=== PATIENT | female | born 1930 | race Caucasian/White ===

== ENCOUNTER 2019-03-08 14:13 | Inpatient (IN) | payer MEDICARE ==
--- NOTE | 2019-03-08 14:19 | ED ---
Neurological HPI - HPI Summary HPI Summary: Pt is an 88 y/o F presenting to the ED brought in by EMS from [facility] for neurological sx. LEVEL 5 CAVEAT: Pt is unable to provide full hx and physical upon initial interaction due to the pts current mental status. The pt arrived to [facility] at 1413, and the provider was at bedside at 1413. Per EMS, the pt was last known well at 1230 and staff subsequently noticed behavioral changes, following acute onset of sx at 1315 noticed by a PA at the nursing facility. EMS reports sx including R facial droop, R arm drop d/t weakness, and sinus bradycardia. They also note she hit her head on a blanka a couple of days ago. GINI CORNELL CALLED at 1419. She is in CT at 1420, and in X-ray as of 1429. Upon neurological exam, the pt is alert and oriented to place and self only. There is R-sided facial symmetry, pt is speaking out of L side only. Motor function in forehead is bilaterally intact, and there is flattening on the R side of the mouth upon pt smiling. Motor function to bilateral lower extremity is unable to be assessed secondary to pt's natural body contracture. On paper NIH stroke scale is 7x due to this finding. tPA ordered at 1433. - History of Current Complaint Stated Complaint: POSS STROKE PER EMS Time Seen by Provider: 03/08/19 14:13 Last Known Well Date: 03/08/19 1230, sx noticed 1315 Hx Obtained From: EMS Hx From Patient Unobtainable Due To: Altered Mental Status - code pauline Onset/Duration: Gradual Onset Onset Severity: Mild Current Severity: Moderate Character: Weak, Motor Weakness, Sensory Loss, Impaired Speech, Confusion Aggravating: Nothing Alleviating: Nothing Associated Signs and Symptoms: Positive: Confusion, Weakness, Impaired Speech TPA Considered: Yes - ordered 1433 - Allergy/Home Medications Allergies/Adverse Reactions: Allergies Allergy/AdvReac Type Severity Reaction Status Date / Time aspirin Allergy Unknown Verified 03/08/19 16:09 Reaction Details Penicillins Allergy Unknown Verified 03/08/19 16:09 Reaction Details shellfish derived Allergy Unknown Verified 03/08/19 16:09 Reaction Details Home Medications: Home Medications Acetaminophen [Acetaminophen Extra Strength] 1,000 mg PO BEDTIME PRN 03/08/19 [ History Confirmed 03/08/19] Acetaminophen [Acetaminophen Extra Strength] 1,000 mg PO Q12HR PRN 03/08/19 [ History Confirmed 03/08/19] Cholecalciferol (Vitamin D3) [Vitamin D3] 2,000 unit PO DAILY 03/08/19 [History Confirmed 03/08/19] Clopidogrel TAB* [Plavix TAB*] 75 mg PO DAILY 03/08/19 [History Confirmed ] Diclofenac 1% GEL (NF) [Voltaren 1% GEL (NF)] 2 applic TRANSDERM QID 03/08/19 [ History Confirmed 03/08/19] Gabapentin CAP(*) [Neurontin 100 mg CAP(*)] 200 mg PO BID 03/08/19 [History Confirmed 03/08/19] Hydrocortisone 1% CREAM* [Hytone Cream 1%*] 1 applic TOPICAL DAILY PRN 03/08/19 [History Confirmed 03/08/19] Magnesium Hydroxide LIQ* [Milk of Magnesia LIQ*] 30 ml PO Q6H PRN 03/08/19 [ History Confirmed 03/08/19] Melatonin (NF) 3 mg PO BEDTIME 03/08/19 [History Confirmed 03/08/19] Metoprolol Succinate XL TAB* [Toprol XL TAB*] 25 mg PO DAILY 03/08/19 [History Confirmed 03/08/19] Minerin Cream* [Eucerin Cream*] 1 applic TOPICAL BID PRN 03/08/19 [History Confirmed 03/08/19] Oral Rinse (Biotene)(NF) [Biotene Dry Mouth Oral Rinse(NF)] 30 ml PO DAILY PRN 03/08/19 [History Confirmed 03/08/19] Ranitidine TAB (NF) [Zantac TAB (NF)] 150 mg PO BEDTIME 03/08/19 [History Confirmed 03/08/19] Sertraline* [Zoloft*] 50 mg PO DAILY 03/08/19 [History Confirmed 03/08/19] guaiFENesin LIQ* [Robitussin*] 10 ml PO Q6HR PRN 03/08/19 [History Confirmed ] hydrOXYzine HCL TAB* [Atarax 25 MG TAB*] 25 mg PO DAILY 03/08/19 [History Confirmed 03/08/19] traMADol TAB* [Ultram*] 50 mg PO QAM PRN 03/08/19 [History Confirmed 03/08/19] PMH/Surg Hx/FS Hx/Imm Hx Previously Healthy: Yes Endocrine/Hematology History: Denies: Hx Diabetes, Hx Systemic Lupus Erythematosus Cardiovascular History: Reports: Other Cardiovascular Problems/Disorders - a-fib Denies: Hx Angina, Hx Congestive Heart Failure, Hx Coronary Artery Disease, Hx Hypercholesterolemia, Hx Hypertension, Hx Myocardial Infarction, Hx Pacemaker /ICD, Hx Valvular Heart Disease Respiratory History: Reports: Hx Asthma Denies: Hx Chronic Obstructive Pulmonary Disease (COPD) History: Denies: Hx Dialysis, Hx Renal Disease Musculoskeletal History: Denies: Hx Rheumatoid Arthritis Sensory History: Denies: Hx Hearing Aid Psychiatric History: Denies: Hx Panic Disorder - Cancer History Hx Chemotherapy: No - Surgical History Surgery Procedure, Year, and Place: NASAL POLYPS REMOVED - Family History Family History: LEVEL 5 CAVEAT: Pt is unable to provide full hx and physical upon initial interaction due to the pts current mental status. - Social History Alcohol Use: None Hx Substance Use: No Substance Use Type: Reports: None Hx Tobacco Use: No Smoking Status (MU): Never Smoked Tobacco Review of Systems - ROS Summary Review of Systems Summary: LEVEL 5 CAVEAT: Pt is unable to provide full hx and physical upon initial interaction due to the pts current mental status. Positive: Decreased ROM Positive: Weakness, Numbness, Slurred Speech Positive: Other - confusion All Other Systems Reviewed And Are Negative: No Physical Exam - Summary Physical Exam Summary: LEVEL 5 CAVEAT: Pt is unable to provide full hx and physical upon initial interaction due to the pts current mental status. Constitutional: Well-developed, Well-nourished, Alert. (-) Distressed Skin: Warm, Dry HENT: Normocephalic; Atraumatic Eyes: Conjunctiva normal Neck: Musculoskeletal ROM normal neck. (-) JVD, (-) Stridor, (-) Tracheal deviation Cardio: Rhythm regular, rate normal, Heart sounds normal; Intact distal pulses; The pedal pulses are 2+ and symmetric. Radial pulses are 2+ and symmetric. Pulmonary/Chest wall: Effort normal. (-) Respiratory distress, (-) Wheezes, (-) Rales Abd: Soft, (-) tenderness, (-) Distension, (-) Guarding, (-) Rebound Musculoskeletal: (-) Edema Neuro: Alert, Oriented to place and self. There is R-sided facial symmetry, pt is speaking out of L side only. Motor function in forehead is bilaterally intact , and there is flattening on the R side of the mouth upon pt smiling. Motor function to bilateral lower extremity is unable to be assessed secondary to pt' s natural body contracture. On paper NIH stroke scale is 7x due to this finding. Psych: Mood and affect Normal Triage Information Reviewed: Yes Vital Signs Reviewed: Yes Completion Of Physical Exam Limited Due To: Altered Mental Status Diagnostics - Laboratory Result Diagrams: 03/08/19 14:15 03/08/19 14:15 Lab Statement: Any lab studies that have been ordered have been reviewed, and results considered in the medical decision making process. - Radiology CXR Radiology Interpretation Completed By: Radiologist Summary of Radiographic Findings: Right basilar atelectasis with cardiomegaly. ED physician has reviewed this report. - CT Brain CT CT Interpretation Completed By: Radiologist Summary of CT Findings: NO ACUTE INTRACRANIAL PATHOLOGY. EXTENSIVE CHRONIC SMALL VESSEL ISCHEMIC CHANGE. ED physician has reviewed this report. Head CTA CT Interpretation Completed By: Radiologist Summary of CT Findings: Normal variation without significant pathologic finding. No central large vessel occlusion or hemodynamically significant stenosis evident. ED physician has reviewed this report. 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: Both Correctly Best Gaze (Only Horizontal Eye Movement): Normal Visual Field Testing: No Visual Loss Facial Paresis-Pt to Smile & Close Eyes or Grimace Symmetry: Minor Paralysis Motor Function - Right Arm: Effort Against Sutton Motor Function - Left Arm: No Drift-Holds 10 Seconds Motor Function - Right Leg: Effort Against Sutton Motor Function - Left Leg: No Drift-Holds 10 Seconds Limb Ataxia-Must be out of Proportion to Weakness Present: Absent Sensory (Use Pinprick to Test Arms/Legs/Trunk/Face): Normal Best Language (Describe Picture, Name Items): No Aphasia Dysarthria (Read Several Words): Slurs Some Words Extinction and Inattention: No Abnormality Total Score: 7 NIH Stroke Scale Comment: Motor function to bilateral lower extremity is unable to be assessed secondary to pt's natural body contracture. On paper NIH stroke scale is 7x due to this finding. Course/Dx - Course Course Of Treatment: Pt is an 88 y/o F presenting to the ED brought in by EMS from [facility] for neurological sx. LEVEL 5 CAVEAT: Pt is unable to provide full hx and physical upon initial interaction due to the pts current mental status. The pt arrived to [facility] at 1413, and the provider was at bedside at 1413. Per EMS, the pt was last known well at 1230 and staff subsequently noticed behavioral changes, following acute onset of sx at 1315 noticed by a PA at the nursing facility. EMS reports sx including R facial droop, R arm drop d/ t weakness, and sinus bradycardia. They also note she hit her head on a blanka a couple of days ago. Upon neurological exam, the pt is alert and oriented to place and self only. There is R-sided facial symmetry, pt is speaking out of L side only. Motor function in forehead is bilaterally intact, and there is flattening on the R side of the mouth upon pt smiling. Motor function to bilateral lower extremity is unable to be assessed secondary to pt's natural body contracture. On paper NIH stroke scale is 7x due to this finding. GINI CORNELL CALLED at 1419. She is in CT at 1420, and in X-ray as of 1429. tPA ordered at 1433. Pts labs show RBC of 5.45 and Hct of 47. Brain CT shows no acute intracranial pathology with noted extensive chronic small vessel ischemic change. Head CTA shows normal variation without significant pathologic finding. No central large vessel occlusion or hemodynamically significant stenosis evident. CXR shows R basilar atelectasis with cardiomegaly. An EKG at 1255 shows NSR 61bpm with Q waves in inferior and anterior leads, nonspecific T wave abnormalities, one degree AV block, no STEMI, no prior EKG for comparison. Pt is admitted to Dr. Packer with a dx of CVA. - Diagnoses Provider Diagnoses: CVA (cerebral vascular accident) During the Visit The Following Alert/Code Occurred: Gini Cornell Discharge - Sign-Out/Discharge Documenting (check all that apply): Patient Departure - Discharge Plan Condition: Fair Disposition: ADMITTED TO [facility] Referrals: Chaparrita Esparza MD [Primary Care Provider] - - Billing Disposition and Condition Condition: FAIR Disposition: Admitted to [facility] - Attestation Statements Document Initiated by Scribe: Yes Documenting Scribe: Janine Baker Provider For Whom Sue is Documenting (Include Credential): Jacob Bennett MD. Scribe Attestation: I, Janine Baker, scribed for Jacob Bennett MD. on 03/08/19 at 1655. Scribe Documentation Reviewed: Yes Provider Attestation: The documentation as recorded by the scribe, Janine Baker accurately reflects the service I personally performed and the decisions made by me, Jacob Bennett MD. Status of Scribe Document: Viewed
[2019-03-08] MEDS ORDERED: Alteplase* 100 MG VIAL ONE (14:33)
[2019-03-08 14:36] LABS: ABS Basophils 0 10^3/ul (0-0.2); ABS Eosinophils 0.2 10^3/ul (0-0.6); ABS Lymphocytes 1.6 10^3/ul (1.0-4.8); ABS Monocytes 0.8 10^3/ul (0-0.8); ABS Neutrophils 6.4 10^3/ul (1.5-7.7); ABS Nucleated RBC 0 10^3/ul; Eosinophil % 2.7 %; Hematocrit 47 % (33-41); Hemoglobin 15.7 g/dL (12.0-16.0); Lymphocyte % 17.2 %; Mean Corpuscular HGB Conc 33 g/dL (31-36); Mean Corpuscular Hemoglobin 29 pg (27-31); Mean Corpuscular Volume 87 fL (80-97); Mean Platelet Volume 8.2 fL (7.4-10.4); Nucleated Red Blood Cells % 0.1; Platelet Count 297 10^3/uL (150-450); Red Blood Count 5.45 10^6 /uL (3.70-4.87); Red Cell Distribution Width 15 % (10.5-15)
[2019-03-08 14:44] LABS: INR 1.02 (0.82-1.09)
[2019-03-08 14:50] LABS: Troponin I 0.01 ng/mL (<0.04)
[2019-03-08] MEDS ORDERED: Alteplase* 100 MG VIAL IV ONE ×2 (14:57)
[2019-03-08 15:01] LABS: Albumin 3.9 g/dL (3.2-5.2); Albumin/Globulin Ratio 1.4 (1-3); BUN/Creatinine Ratio 16.8 (8-20); Calcium 9.1 mg/dL (8.6-10.3); EGFR African American 67.5 (>60); EGFR Non-African American 55.8 (>60); Globulin 2.7 g/dL (2-4); HDL Cholesterol 64.5 mg/dL; Potassium 4.7 mmol/L (3.5-5.0); Total Bilirubin 0.4 mg/dL (0.2-1.0); Total Protein 6.6 g/dL (6.4-8.9)
[2019-03-08 19:52] LABS: Urine Appearance Clear; Urine Bacteria 1+ (Absent); Urine Bilirubin Negative (Negative); Urine Blood 1+ (Negative); Urine Color Yellow; Urine Glucose Negative (Negative); Urine Ketones Negative (Negative); Urine Nitrite Positive (Negative); Urine Protein Negative (Negative); Urine Red Blood Cell 3+(>10/hpf) (Absent); Urine Specific Gravity > 1.060 (1.010-1.030); Urine Urobilinogen Negative (Negative); Urine White Blood Cell Absent (Absent)
--- NOTE | 2019-03-08 20:42 | HP ---
CC: Dr. Chaparrita Esparza; Dr. Amando Packer* HISTORY AND PHYSICAL: DATE OF ADMISSION: 03/08/19 PROVIDER: Kennedi Garner NP PRIMARY CARE PROVIDER: Dr. Chaparrita Esparza/[facility]. ATTENDING PHYSICIAN WHILE IN THE HOSPITAL: Dr. Walt Rinaldi* (dictated by Kennedi Garner NP). NEUROLOGIST: Dr. Amando Packer. CHIEF COMPLAINT: Right-sided weakness, right facial droop, aphasia. HISTORY OF PRESENT ILLNESS: Ms. Tinoco is an 88-year-old female with a history of CVA in 2010, history of depression, history of heart failure with reduced ejection fraction, who is a current resident at [facility]. The patient was brought to [facility] by EMS after she was found to have neurological symptoms at [facility] today. The patient arrived here at approximately 1413. It was reported from [facility] that the patient's last known well time was 1 o'clock. Subsequently, the staff noticed behavior changes following an acute onset of symptoms at 1315 was noticed by the PA at [facility]. The patient had acute onset of aphasia, which is new for the patient. Prior to this event, the patient was able to carry on a conversation without difficulty. Upon arrival to the emergency room, theodore diann was called at 1419. The patient had a CT of the head and then subsequently received tPA in the emergency room as the patient did have right-sided facial asymmetry, unequal smile, right-sided weakness that was worse. The patient was seen and evaluated at the bedside by Neurology, Dr. Amando Packer, who had recommended tPA and the patient will be admitted to the hospital as an inpatient. Upon my evaluation, the patient has no complaints. She is able to speak in one word sentences. She is able to answer questions appropriately. Speech continues to be slightly slurred and occasionally is able to produce 2 to 3 word sentences. The patient does have some minimal movement to the right arm. Does continue to have right facial droop with unequal smile and tongue that deviates to the right. Given the patient's presentation of stroke and receiving tPA, we will admit her inpatient in the ICU. PAST MEDICAL HISTORY: Significant for CVA in 2010, history of a non-STEMI, history of pulmonary hypertension, history of depression, diastolic heart dysfunction. PAST SURGICAL HISTORY: Tonsillectomy. HOME MEDICATIONS: 1. Hydrocortisone cream topically p.r.n. 2. Eucerin cream topically p.r.n. 3. Milk of magnesia 30 mL q.6 hours as needed for constipation. 4. Guaifenesin 10 mL p.o. q.6 hours p.r.n. 5. Biotin 30 mL p.o. daily p.r.n. 6. Voltaren gel 2 applications transdermally 4 times daily. 7. Extra Strength Tylenol 1000 mg q.12 hours as needed. 8. Gabapentin 200 mg p.o. b.i.d. 9. Sertraline 50 mg p.o. daily. 10. Vitamin D3 2000 units p.o. daily. 11. Tramadol 50 mg p.o. q.a.m. p.r.n. 12. Metoprolol 25 mg p.o. daily. 13. Zantac 150 mg p.o. at bedtime. 14. Melatonin 3 mg p.o. at bedtime. 15. Hydroxyzine 25 mg p.o. daily. 16. Clopidogrel 75 mg p.o. daily. ALLERGIES: 1. PENICILLIN. 2. ASPIRIN. 3. SHELLFISH. FAMILY HISTORY: No reported history of coronary artery disease. Father with a history of colon cancer. Per the old records, mother with a history of coronary artery disease. No reported history of diabetes. SOCIAL HISTORY: The patient reports that she does not smoke, drink, or use illicit drugs. She is currently a resident at [facility]. Surrogate decision maker in the event she is unable to make her own decisions is Argelia, who is a friend. Her phone number is [phone]. REVIEW OF SYSTEMS: The patient denies any fever or unintended weight loss. Denies any chest pain or edema. No cough, hemoptysis, or shortness of breath. She denies any nausea, vomiting, diarrhea, headache, blurred vision, dizziness, lightheadedness. Denies any hematuria, dysuria. She does report weakness on the right side. She is nonambulatory and wheelchair bound chronically with contracted lower extremities. She does have some right facial droop and difficulty producing words. She denies any visual complaints, dysphagia, arthralgias, myalgias, rashes, lesions, or open sores. She denies any psychosis or anxiety. PHYSICAL EXAMINATION GENERAL: At this time, Ms. Tinoco is resting on the stretcher in the emergency room. She is alert and oriented. She does not appear to be in any acute distress. She is well developed, well nourished. VITAL SIGNS: Blood pressure 148/73, heart rate is 66, respirations are 18, O2 saturation 97%, temperature was 97.6. HEENT: Head is atraumatic, normocephalic. She does have ecchymosis noted to her left eye from she bumped it on a Darcie lift a few days ago. It is yellow in discoloration. She does have right facial drooping with unequal asymmetrical smile on the right and flattened nasal fold on the right. Mucous membranes are moist. NECK: Supple. LUNGS: Clear to auscultation bilaterally. No wheezes, rales, or rhonchi. CARDIAC: S1, S2. Regular rate and rhythm. No murmurs, rubs, or gallops. ABDOMEN: Soft and nontender. Bowel sounds are present x4. NEUROLOGIC: She is awake. She is alert and oriented x3. She is able to produce 1 to 2 word sentences. Speech remains slightly slurred and garbled. Tongue deviates to the right. She does have right facial droop. Smile is unequal with depressed on the right. She does have right arm weakness. Her lower extremities are chronically contracted. She does have push-pull strength on the left, weaker on the right in the lower extremities. Sensation is intact to both lower extremities and equal. Sensation to upper extremities is diminished on the right. She does have some movement to her right upper arm. Handgrip on the right is weaker. Left handgrip is strong. [id number] is intact on the left. She is able to raise her eyebrows equally. She is able to respond appropriately to questions, but does continue to have some aphasia and her words are garbled at times. SKIN: Intact. She does have an ecchymotic area noted to her left eyebrow. DIAGNOSTIC STUDIES/LAB DATA: WBCs are 9.0, RBCs 4.45, hemoglobin 15.7, hematocrit was 47, platelet count of 279. INR was 1.02, APTT was 33.0. Sodium 142, potassium 4.7, chloride 106, carbon dioxide was 29, anion gap of 7, BUN was 16, creatinine 0.95, glucose 131, lactic acid 1.8, calcium 9.1. Total bili 0.40, ASTs were 20, ALTs were 21, alkaline phosphatase was 70. Troponin 0.01. Albumin was 3.9. Triglycerides are 224, cholesterol 189, LDL was 80, HDL was 64.5. Urine is currently pending. She had a CT of the brain, radiologist's impression: No acute intracranial pathology, extensive chronic small-vessel ischemic changes. She had a chest x-ray, radiologist's impression: Right basilar atelectasis with cardiomegaly. She had an electrocardiogram, which showed sinus rhythm at a rate of 61. She had a CTA of the head: Normal variation without significant pathology finding. No central large-vessel occlusion or hemodynamically significant stenosis was evident. Normal configuration of the branches and vessels at the aortic arch, aortic plaquing without evidence of ostial stenosis at the aortic arch branch vessels. Approximately 70% short segment right internal carotid artery stenosis with progression when compared to 2014. Approximately 30% short segment stenosis of the left internal carotid artery without significant change. ASSESSMENT AND PLAN: Ms. Tinoco is an 88-year-old female who currently resides in [facility], who presented to the emergency room with new neurologic symptoms, aphasia that started with last known well time of 1 p.m. A code diann was called in the emergency room and the patient received tPA. She will be admitted to the hospital for cerebrovascular accident, status post tPA to ICU. 1. Cerebrovascular accident. The patient had acute neurologic changes at [facility] and was transferred here for further evaluation, found to have acute cerebrovascular accident with right-sided weakness, right facial droop, and aphasia. She was given tPA in the emergency room. We will continue with tPA protocol, vital signs, and neurological checks per the protocol. She will have a repeat CT of the brain tomorrow at 1500. She will have an MRI of the brain tomorrow at 1700. She will be placed on bleeding precautions. She will not be given Plavix or aspirin at this time as she just received tPA. She will have a transthoracic echocardiogram with bubble study. She already had a lipid profile drawn in the emergency room. She will be started on atorvastatin 40 mg p.o. daily. The patient did have a dysphagia screen and passed in the emergency room. She was seen in consultation by Neurology. Further recommendations will be based on further imaging. 2. Acid reflux. We will continue her on omeprazole p.o. daily. 3. Hypertension. She will continue on metoprolol as previously prescribed. 4. FEN: She can have a heart-healthy diet, caffeine okay. 5. Code status: She is a DNR/DNI. She does have a MOLST form that has been updated and placed on her chart. 6. DVT prophylaxis: I will hold on chemical DVT prophylaxis as it is contraindicated at this time as the patient received tPA in the emergency room. I will not place her on SCDs due to recent tPA in the emergency room. SCDs can be resumed tomorrow. TIME SPENT: Time spent on this admission was 60 minutes, greater than half that time was spent at the bedside reviewing events leading thus far to her hospitalization, performing physical exam, and reviewing my plan of care. I have discussed this with my attending, Dr. Walt Rinaldi; he is in agreement with my plan. KENNEDI GARNER, WALT [id number]/CPS #: [id number] CRISTIAN
[2019-03-08] MEDS ORDERED: Atorvastatin* 40 MG TAB PO SCH (21:00)
--- NOTE | 2019-03-08 22:58 | CONS ---
CC: [facility]* CONSULTATION REPORT: DATE OF CONSULT: 03/08/19. REQUESTING PHYSICIAN IN CONSULT: Dr. Bennett. ADMITTING SERVICE: Hospitalist Service. PRIMARY CARE PROVIDER: [facility] CHIEF COMPLAINT: Right facial droop, right arm drop, weakness, and difficulty with speech. HISTORY OF PRESENT ILLNESS: Ms. Tinoco is an 88-year-old female patient who resides at [facility]. She carries a history of syncope, CVA with residual right- sided weakness, [id number]-[id number] pulmonary hypertension, and history of diastolic dysfunction. She is coming into our ER today because it was noted by nursing staff and physician's medical services assistant over at [facility] that at around 12: 30, there was some behavioral changes noted. At 1:15, it was noted by the physician's medical services assistant at nursing facility that the patient had had a right facial droop, acute onset of these symptoms and worsening right arm weakness. At that point, EMS was summoned and the patient was brought to the hospital for a concern for CVA. The patient was noted a few days ago to have struck her head. She presented to the emergency room department. Radha tidwell was called when she hit the ER. NIH stroke scale was a 7. There are unable to preform motor right and left leg assessment due to history of contractures. The patient really is unable to give history. The surrogate is there today and does state that the patient has a previous history of stroke and right-sided weakness. She does state that today by the time of patient's surrogate got to the hospital, she did note that the patient had worsening right-sided weakness, also right-sided facial droop and difficulty with speech. She was taken emergently from EMS to the CT scan and no bleed was noted. Surrogate decision maker was present at the bedside to corroborate history and tell us that again worsening right-sided weakness is noted particularly in the right arm. In addition to that there was right-sided facial drooping and her speech appeared to be different. At that point, the risk-benefit, discussion was given with patient and the surrogate. She met criteria for TPA infusion and TPA was given. PAST MEDICAL HISTORY: Again, it is significant for: 1. 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 2. Syncope. 3. Oggp-jn-utmdpphz pulmonary hypertension. 4. Diastolic heart dysfunction. 5. Depression. 6. Anxiety. 7. Neuropathy. 8. Hypertension. 9. GERD. 10. Carotid artery disease. PAST SURGICAL HISTORY: There has been no recent surgeries reported by the surrogate decision maker. HOME MEDICATIONS: Include: 1. Hydrocortisone cream 1 application topically daily as needed. 2. Eucerin 1 application topically b.i.d. as needed. 3. Milk of mag 30 cc p.o. daily as needed. 4. Robitussin 10 cc p.o. every 6 hours as needed. 5. Biotin 30 cc p.o. daily as needed. 6. Diclofenac 2 applications transdermally 4 times a day. 7. Tylenol 1000 mg p.o. every 12 hours as needed. 8. Gabapentin 200 mg p.o. b.i.d. 9. Zoloft 50 mg daily. 10. Vitamin D 2000 units p.o. daily. 11. Tramadol 50 mg p.o. q.a.m. as needed. 12. Metoprolol-XL 25 mg daily. 13. Zantac 150 mg p.o. daily. 14. Melatonin 3 mg p.o. at bedtime. 15. Atarax 25 mg daily. 16. Plavix 75 mg daily. 17. Tylenol 1000 mg at bedtime as needed. ALLERGIES TO MEDICATIONS: Include ASPIRIN, PENICILLIN. FAMILY HISTORY: Mother had CAD. Father had colon cancer. SOCIAL HISTORY: There was no reports of alcohol use. She resides [facility]. No reports of smoking. Surrogate decision maker is her friend, Rosa Tinoco. REVIEW OF SYSTEMS: There has been no reports of change of medications. No double vision. No ear discharge. There is no rhinorrhea. No sore throat. No thyroid enlargement. She denied any chest pain or shortness of breath. No abdominal pain. Review of 14 systems completed, all others negative. PHYSICAL EXAM: Vital signs: Blood pressure 137/68, pulse is 63, respiration 16 , O2 sat 97%, temperature 97.6. General: At this time, Ms. Tinoco is an 88- year-old female patient. She is sitting in the ED stretcher. She does not appeared to be in acute distress. HEENT: Head: Atraumatic. Eyes: Sclerae anicteric, not pale. Neck: Supple. Throat: Oral mucosa appears to be moist. No oropharyngeal erythema. Heart: Sounds S1, S2. Regular rate and rhythm. No murmurs, rubs, gallops. Lungs: Clear to auscultation bilaterally. No wheezes, rales, or rhonchi. Abdomen: Soft, flat, nontender. Bowel sounds are present. Extremities: Lower extremities noted to be contracted. Pulses were 2 + throughout. She had some trace edema bilaterally. The upper extremity on the right side, she again was noted to be flaccid. She was able to resist against gravity only. At that point, she had 5/5 strength in left upper extremity at the biceps and at the shoulder. Neurologically, she is awake. She is alert. She knew that it was almost March. She did know her age. She received appointment NIH stroke scale for getting the month wrong. She was following commands. She had no gaze preference noted. There was no visual field deficits noted. She did have a partial facial palsy 2+. She had no drift in the left arm. She had some effort against gravity on the right arm. Again, lower extremities were difficult to test because she does not walk generally. She again is contracted. At this point, she had no limb ataxia. She had gross sensation to light touch bilaterally. She had ngqj-pr-izhamdjo aphasia noted and fnmh-ro-zbtwbfgp dysarthria as well. She had no neglect. Deep tendon reflexes were trace throughout and were symmetric. Rapid alternating movements were intact. She could not do this with the right hand, but she can do it on the left hand touching her index and thumb rapidly. Gait was not tested at this point. Romberg not tested. Cranial Nerves: Her EOMs were intact. Her pupils were equal and reactive bilaterally. Again, her tongue was midline. She did have a right- sided facial droop noted. Visual dhillon intact at this point grossly. She was able to shrug her shoulders, she had difficulty with this on the right shoulder. Skin: She did have some ecchymosis above the left church. DIAGNOSTIC STUDIES/LAB DATA: Laboratory data today reveals a WBC of 9.0, RBC of 5.45, hemoglobin of 15.7, hematocrit of 47, platelet count of 297. Her INR was 1.02, PTT of 33. Her sodium was 142, potassium 4.7, chloride 106, bicarb 29 , BUN was 16, creatinine of 0.95, glucose was 131. Lactic 1.8. Calcium 9.1. Total bili 0.4, AST 20, ALT 21, alk phos 70. Troponin 0.01. Albumin was 3.9. Her LDL was 80. Imaging: I did review the imaging personally and with Dr. Packer. I did not appreciate any acute hemorrhage. In addition to this, it did appear to have chronic small vessel ischemic changes, which is extensive. The impression from Dr. Mancilla, no acute intracranial pathology, extensive chronic small vessel ischemic change. She had a head CTA obtained today as well, which revealed normal variation without significant pathologic findings. No central large vessel occlusion or hemodynamically significant stenosis evident. Neck angiogram showed approximate 70% short segment right internal carotid artery stenosis with progression compared with 2014 ultrasound exam. Approximate 30% short segment stenosis at the left internal carotid artery without significant change. She had chest x-ray obtained today, right basilar atelectasis and cardiomegaly. She did have an EKG obtained today, which showed a normal sinus rhythm, rate of 61. No ST-elevation or T-wave inversions are noted. Old medical records were reviewed. ASSESSMENT AND PLAN: Ms. Tinoco is an 88-year-old female with patient coming into the ED today with acute onset of stroke-like symptoms. The patient was noted to have worsening right-sided facial droop, worsening right upper extremity weakness and difficulty with speech. She was transferred to the hospital from [facility] via EMS. She was last known normal at 1230. The symptoms were noted at 1315. The patient came into the ER, code tidwell was activated. She was sent to CT scanning. It was noted on CT that again no bleeding was noted. CTA did not show large vessel occlusion. She had no contraindication for tPA at this point and it was decided given the NIH stroke scale scores that TPA would be given. Her healthcare proxy was there and agreed. We did explain to her that there is about a 1 in 20 chance of bleeding , however, patients who do bleed after given tPA intracranially, do have better outcomes overall versus patients who are not given tPA. So at that point, the patient and healthcare proxy both were in agreement and tPA was given. I would recommended going forward, my suspicion that she had another cerebrovascular accident, the plan would be to get an MRI. We will place her on telemetry to monitor for atrial fibrillation. In addition to this, we will check an echo with bubble study. She already had a CTA, which did not show large vessel occlusion. She does have carotid artery disease. Going forward, we will need to clarify her aspirin allergy because dual antiplatelet therapy is recommended for at least 30 days, however, we will need to clarify the aspirin allergy. I would recommend continuing her Plavix, however, this will need to be continued after 24 hours after tPA had been given. She will need to have a repeat CT of the brain in 24 hours to establish no bleed. MRI can be done tomorrow as well. She will need frequent neurological checks in our ICU. Bleeding precautions will need to be instituted. I would recommend placing her on bedrest. I would recommend getting a swallow evaluation and PT and OT evaluations in 24 hours. Again, monitor for any atrial fibrillation and I would hold obviously any blood thinners for at least first 24 hours such as subcu heparin, subcu Lovenox. DVT prophylaxis, I would recommend SCDs. Code status, she is a DNR. We would need to again clarify with her healthcare agent. TIME SPENT: Time spent on the admission which was critical care time was 70 minutes, greater than half of the time was spent [id number] with the patient obtaining the history and physical, the other half of the time spent implementing the plan of care. I did discuss the plan of care with my Dr. Packer, he was in agreement, he was present for the administration of tPA and decision to give tPA. MARIMAR SY NP [id number]/[facility] #: [id number] CRISTIAN
--- NOTE | 2019-03-08 23:46 | PN ---
Progress Note - Progress Note Date of Service: 03/08/19 Note: Paged - Patient became acutely unresponsive. BP's were within parameters. Prior to this - patient was moving ext and alert, following commands and verbal. Had weakness in RUE. 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 On exam: pupils are equal and reactive, upgoing babinski's, unresponsive to voice or tactile stimuli. Not moving any extremeities. HCP contacted and updated. Confirmed DNR/DNI status. HCP asked if I would contact Daughter in [place] at [phone] and discussed poor prognosis and that patient will not survive and may within the next 24 hours. Daughter attempting to come here. Spoke with Dr. Packer - BP control with IVFs, prognosis is poor.
[2019-03-09] MEDS ORDERED: Norepinephrine 16MCG/ML IVPRE* 4,000 MCG/250 ML BAG IV ONE (00:02)
[2019-03-09] MEDS ORDERED: NS 0.9% 1000 ML** 1,000 ML IV SCH (00:15)
[2019-03-09] MEDS ORDERED: Morphine INJ* 2 MG/ML 1 ML SYRINGE (TWO MG - NEW SYRINGE VERSION) IV PRN (01:30)
[2019-03-09] MEDS ORDERED: hydrALAZINE IV* 20 MG/ML VIAL ONE (01:34)
[2019-03-09] MEDS ORDERED: hydrALAZINE IV* 20 MG/ML VIAL IV SLOW PU ONE (01:34)
[2019-03-09] MEDS ORDERED: NitroPRUSSide* 50 MG in D5W 250 ML BAG* 248 ML IVPB SCH ×2 (02:00→18:00)
[2019-03-09] MEDS ORDERED: Morphine 4 MG/ML VIAL (1 ml) 4 MG/ML VIAL ONE (02:02)
[2019-03-09] MEDS: Morphine 4 MG/ML VIAL (1 ml) 4 MG/ML VIAL IV PRN ×2 (02:11→20:59)
--- NOTE | 2019-03-09 08:07 | PN ---
Subjective Date of Service: 03/09/19 Length of Stay: 1 Days Review of Systems: The patient received tPA yesterday and was improving. When I last saw her yesterday, she had more functioning of her left arm, was more alert and her speech was less dysarthric. I was contact by Dr. Garcia last night after the patient became unresponsive and began to decompensate. 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 Her healthcare proxy was contacted by Dr. Garcia. The patient was bedbound at [facility], needing a Darcie lift and we very clear to the health care proxy that she did not want any heroic measures. She is DNR/DNI. Overnight the patient's blood pressure spiked to [address] Garcia contacted me, and I recommended BP control to keep SBP < 140, nitroprusside was started. The patient's breathing has become more agonal overnight, she desats into the 80s immediately. Objective Active Medications: Atorvastatin Calcium (Lipitor*) 40 mg PO 2100 [facility] Last Admin: 03/08/19 20:22 Dose: Not Given Hydroxyzine HCl (Atarax Tab*) 25 mg PO DAILY [facility] Sodium Nitroprusside 50 mg/ (Dextrose) 250 mls @ 5.85 mls/hr IVPB Q42H [facility] Last Admin: 03/09/19 02:07 Dose: 5.9 mls/hr Metoprolol Succinate (Toprol Xl Tab*) 25 mg PO DAILY [facility] Morphine Sulfate (Morphine 4 Mg/Ml Vial (1 Ml)) 2 mg IV Q2H PRN PRN Reason: PAIN Last Admin: 03/09/19 02:11 Dose: 2 mg Sertraline HCl (Zoloft*) 50 mg PO DAILY [facility] Vital Signs 03/08/19 03/08/19 03/08/19 14:22 14:43 14:58 Temperature 97.6 F Pulse Rate 63 60 Respiratory 16 13 Rate Blood Pressure 137/68 (mmHg) O2 Sat by Pulse 95 97 96 Oximetry 03/08/19 03/08/19 03/08/19 14:59 15:00 15:01 Temperature Pulse Rate 63 61 Respiratory 13 15 16 Rate Blood Pressure 146/76 (mmHg) O2 Sat by Pulse 94 96 Oximetry 03/08/19 03/08/19 03/08/19 15:09 15:24 15:39 Temperature Pulse Rate 62 Respiratory 15 15 20 Rate Blood Pressure 153/69 143/73 145/73 (mmHg) O2 Sat by Pulse 95 Oximetry 03/08/19 03/08/19 03/08/19 15:54 16:00 16:09 Temperature Pulse Rate Respiratory 14 18 19 Rate Blood Pressure 149/78 130/91 (mmHg) O2 Sat by Pulse Oximetry 03/08/19 03/08/19 03/08/19 16:24 16:39 16:54 Temperature Pulse Rate 66 66 67 Respiratory 17 18 17 Rate Blood Pressure 151/88 154/83 148/73 (mmHg) O2 Sat by Pulse 95 97 97 Oximetry 03/08/19 03/08/19 03/08/19 17:00 17:09 17:48 Temperature Pulse Rate 65 66 Respiratory 18 13 17 Rate Blood Pressure 146/83 147/75 (mmHg) O2 Sat by Pulse 97 95 Oximetry 03/08/19 03/08/19 03/08/19 18:00 18:18 18:48 Temperature Pulse Rate Respiratory 14 16 18 Rate Blood Pressure 138/85 143/70 (mmHg) O2 Sat by Pulse Oximetry 03/08/19 03/08/19 03/08/19 19:01 19:18 19:28 Temperature Pulse Rate 64 Respiratory 18 22 16 Rate Blood Pressure 129/62 151/71 (mmHg) O2 Sat by Pulse 95 Oximetry 03/08/19 03/08/19 03/08/19 19:30 19:33 19:45 Temperature 98.3 F 98.3 F Pulse Rate 62 64 63 Respiratory 15 16 18 Rate Blood Pressure 143/66 151/71 158/68 (mmHg) O2 Sat by Pulse 95 95 96 Oximetry 03/08/19 03/08/19 03/08/19 20:00 20:01 20:03 Temperature 98.3 F Pulse Rate 68 68 Respiratory 20 20 Rate Blood Pressure 146/62 (mmHg) O2 Sat by Pulse 97 97 Oximetry 03/08/19 03/08/19 03/08/19 20:15 20:30 20:33 Temperature 98.3 F Pulse Rate 63 71 Respiratory 22 20 Rate Blood Pressure 138/96 162/82 (mmHg) O2 Sat by Pulse 96 95 Oximetry 03/08/19 03/08/19 03/08/19 20:45 21:00 21:03 Temperature 98.3 F Pulse Rate 62 69 Respiratory 16 11 Rate Blood Pressure 126/98 144/71 (mmHg) O2 Sat by Pulse 97 97 Oximetry 03/08/19 03/08/19 03/08/19 21:15 21:30 21:33 Temperature 98.3 F Pulse Rate 70 71 Respiratory 17 20 Rate Blood Pressure 147/74 135/81 (mmHg) O2 Sat by Pulse 99 95 Oximetry 03/08/19 03/08/19 03/08/19 22:00 23:00 23:28 Temperature Pulse Rate 71 70 57 Respiratory 14 15 17 Rate Blood Pressure 133/75 164/92 122/66 (mmHg) O2 Sat by Pulse 94 94 94 Oximetry 03/08/19 03/08/19 03/08/19 23:33 23:40 23:45 Temperature 98.7 F Pulse Rate 58 58 Respiratory 16 16 Rate Blood Pressure 132/68 (mmHg) O2 Sat by Pulse 94 94 Oximetry 03/09/19 03/09/19 03/09/19 00:00 00:15 00:30 Temperature 97.5 F Pulse Rate 60 59 58 Respiratory 9 17 21 Rate Blood Pressure 119/64 112/65 122/61 (mmHg) O2 Sat by Pulse 97 94 98 Oximetry 03/09/19 03/09/19 03/09/19 00:33 00:45 01:00 Temperature 98.6 F Pulse Rate 61 60 Respiratory 12 13 Rate Blood Pressure 136/73 149/71 (mmHg) O2 Sat by Pulse 98 98 Oximetry 03/09/19 03/09/19 03/09/19 01:03 01:31 01:32 Temperature 98.5 F Pulse Rate 67 73 Respiratory 14 14 Rate Blood Pressure 237/98 232/103 (mmHg) O2 Sat by Pulse 96 97 Oximetry 03/09/19 03/09/19 03/09/19 01:33 01:37 01:45 Temperature 98.7 F Pulse Rate 66 55 Respiratory 17 18 Rate Blood Pressure 225/84 177/89 (mmHg) O2 Sat by Pulse 96 96 Oximetry 03/09/19 03/09/19 03/09/19 02:00 02:01 02:11 Temperature Pulse Rate 54 Respiratory 21 21 13 Rate Blood Pressure 207/90 (mmHg) O2 Sat by Pulse 69 Oximetry 03/09/19 03/09/19 03/09/19 02:25 02:30 02:45 Temperature Pulse Rate 73 72 51 Respiratory 16 12 23 Rate Blood Pressure 125/57 123/54 143/63 (mmHg) O2 Sat by Pulse 97 97 77 Oximetry 03/09/19 03/09/19 03/09/19 03:00 03:01 03:15 Temperature Pulse Rate 75 70 74 Respiratory 22 14 17 Rate Blood Pressure 137/58 138/65 (mmHg) O2 Sat by Pulse 97 97 97 Oximetry 03/09/19 03/09/19 03/09/19 03:30 03:44 03:45 Temperature 97.5 F Pulse Rate 83 87 Respiratory 21 15 Rate Blood Pressure 135/55 151/62 (mmHg) O2 Sat by Pulse 97 97 Oximetry 03/09/19 03/09/19 03/09/19 04:00 04:01 04:15 Temperature Pulse Rate 81 68 83 Respiratory 21 21 18 Rate Blood Pressure 135/62 169/71 (mmHg) O2 Sat by Pulse 97 97 97 Oximetry 03/09/19 03/09/19 03/09/19 04:30 04:31 04:45 Temperature Pulse Rate 82 95 71 Respiratory 7 14 8 Rate Blood Pressure 144/57 132/62 156/66 (mmHg) O2 Sat by Pulse 97 97 95 Oximetry 03/09/19 03/09/19 03/09/19 04:50 04:52 05:00 Temperature Pulse Rate 88 59 53 Respiratory 10 16 23 Rate Blood Pressure 161/68 143/50 143/60 (mmHg) O2 Sat by Pulse 92 91 86 Oximetry 03/09/19 03/09/19 03/09/19 05:15 05:30 05:45 Temperature Pulse Rate 83 81 77 Respiratory 16 17 16 Rate Blood Pressure 134/52 140/55 137/55 (mmHg) O2 Sat by Pulse 88 90 92 Oximetry 03/09/19 03/09/19 06:00 07:39 Temperature 99.9 F Pulse Rate 78 Respiratory 22 Rate Blood Pressure 140/57 (mmHg) O2 Sat by Pulse 93 Oximetry Intake and Output Last 24 Hours 03/07/19 03/08/19 03/09/19 03/10/19 06:59 06:59 06:59 06:59 Intake Total 48 Output Total 305 Balance -257 Weight 146 lb 13.246 oz Intake: Medicated IV 48 Nitroprusside 48 Output: [place] 305 Oxygen Devices in Use Now: OxyMask Neurology Exam: General: The patient is lying in bed, with NRB in place, obtunded, unrepsonsive to loud noise and pain. Breathing is slow and at times agonal. CTAB, RRR, no m/g/r. Skin is warm and dry. Doll's eye negative, corneal absent, no reponse to painful stim in all four extremities or with sternal rub. DTRs down throughout , Pupils are 1mm, sluggish. Babinski is equivocal. No posturing evident. She does have contractures the LEs. Result Diagrams: 03/08/19 14:15 03/08/19 14:15 Microbiology and Other Data: Microbiology 03/08/19 16:15 Nasal Screen MRSA (PCR) - Final Nasal Mrsa Not Detected Assessment/Plan 88 y/o with acute onset right HP, history of prior stroke with residual weakness on the right side but her right sided weakness was dramatically worse with worsened dysarthria. NIH was initially 7 but could not score LEs due to contractures. She was deemed a good tPA candidate and was given. Overnight, she developed a large pontine bleed with severe decline in status. Prognosis is extremely poor with a devastating pontine stroke. She is DNR/DNI. Healthcare proxy confirmed that she did not want heroic measures DNR/DNI. While more aggressive intervention was considered, the evidence for cyroprecipitate, FPP is poor and given the location and size of her bleed as well as her poor premorbid funtioning, any outcome would likely be very poor with a severe disability and poor prognosis. The patient is being kept comfortable. Maintaining SBP < 140, O2 supplementation. The daughter was contacted last night and is on her way from [place]. I have tried to contact her again this am at [phone]. I will continue to reach to her today.
[2019-03-09] MEDS ORDERED: hydrOXYzine HCL TAB* 25 MG PO SCH (09:00)
[2019-03-09] MEDS ORDERED: Metoprolol Succinate XL TAB* 25 MG PO SCH (09:00)
[2019-03-09] MEDS ORDERED: Sertraline* 50 MG TAB PO SCH (09:00)
[2019-03-09] MEDS ORDERED: Atropine 1% (ORAL/SL)* 15 ML BTL SL PRN (18:06)
--- NOTE | 2019-03-09 18:16 | PN ---
Subjective Date of Service: 03/09/19 Interval History: Unresponsive Unable to make needs known Objective Active Medications: Atropine Sulfate (Atropine 1% (Oral/Sl)*) 2 drop SL Q2H PRN PRN Reason: DISCOMFORT Morphine Sulfate (Morphine 4 Mg/Ml Vial (1 Ml)) 2 mg IV Q2H PRN PRN Reason: PAIN Last Admin: 03/09/19 02:11 Dose: 2 mg Vital Signs - 8 hr 03/09/19 03/09/19 03/09/19 10:15 10:30 10:45 Temperature Pulse Rate 66 57 62 Respiratory 21 16 24 Rate Blood Pressure 117/50 119/52 113/51 (mmHg) O2 Sat by Pulse 90 92 93 Oximetry 03/09/19 03/09/19 03/09/19 11:00 11:01 11:15 Temperature Pulse Rate 67 63 58 Respiratory 15 21 21 Rate Blood Pressure 115/55 102/49 (mmHg) O2 Sat by Pulse 92 91 90 Oximetry 03/09/19 03/09/19 03/09/19 11:30 11:45 12:00 Temperature 97.1 F Pulse Rate 58 57 62 Respiratory 14 18 18 Rate Blood Pressure 108/52 94/46 89/48 (mmHg) O2 Sat by Pulse 92 91 89 Oximetry 03/09/19 03/09/19 03/09/19 12:01 12:15 12:30 Temperature Pulse Rate 59 61 58 Respiratory 16 13 18 Rate Blood Pressure 116/50 112/50 (mmHg) O2 Sat by Pulse 92 96 95 Oximetry 03/09/19 03/09/19 03/09/19 12:45 13:00 13:15 Temperature Pulse Rate 59 54 55 Respiratory 17 17 18 Rate Blood Pressure 103/46 98/48 94/47 (mmHg) O2 Sat by Pulse 95 95 93 Oximetry 03/09/19 03/09/19 03/09/19 13:30 13:45 14:00 Temperature Pulse Rate 57 56 52 Respiratory 23 13 13 Rate Blood Pressure 100/50 101/47 106/49 (mmHg) O2 Sat by Pulse 93 94 94 Oximetry 03/09/19 03/09/19 03/09/19 14:15 14:30 14:45 Temperature Pulse Rate 56 54 57 Respiratory 17 10 18 Rate Blood Pressure 99/47 105/50 102/48 (mmHg) O2 Sat by Pulse 93 94 94 Oximetry 04/03/09/19 03/09/19 15:00 15:15 15:30 Temperature Pulse Rate 59 55 58 Respiratory 14 15 13 Rate Blood Pressure 106/50 105/46 91/46 (mmHg) O2 Sat by Pulse 96 94 94 Oximetry 03/09/19 03/09/19 15:45 16:00 Temperature 97.1 F Pulse Rate 55 61 Respiratory 10 16 Rate Blood Pressure 103/49 107/51 (mmHg) O2 Sat by Pulse 95 95 Oximetry Oxygen Devices in Use Now: OxyMask Appearance: sitting up, unresponsive Eyes: No Scleral Icterus Ears/Nose/Mouth/Throat: NL Teeth, Lips, Gums Neck: NL Appearance and Movements; NL JVP Respiratory: Symmetrical Chest Expansion and Respiratory Effort Cardiovascular: RRR Neurological: - - AOx0 Result Diagrams: 03/08/19 14:15 03/08/19 14:15 Microbiology and Other Data: Microbiology 03/08/19 16:15 Nasal Screen MRSA (PCR) - Final Nasal Mrsa Not Detected Assess/Plan/Problems-Billing 88 y/o pw acute CVA s/p tpa complicated by large pontine hemorrhage - Patient Problems (1) Pontine hemorrhage Comment: prognosis poor with expected in hours to days No longer needing medications to maintain BP <140 [place] (2) DNR (do not resuscitate)
[2019-03-10] MEDS: Morphine 4 MG/ML VIAL (1 ml) 4 MG/ML VIAL IV PRN (00:06)
[2019-03-10 00:17] VITALS: BP 73/39
--- NOTE | 2019-03-10 00:29 | PN ---
Progress Note - Progress Note Date of Service: 03/10/19 Note: I was notified by nursing that the patient at 1217 on 03/10/19. Unfortunately the patient's daughter did not make it to the hospital prior to her . Chela for hemorrhagic transformation of an ischemic CVA following tPA administration. I attempted to contact the patient's daughter but have been unsuccessful so far.
--- NOTE | 2019-03-10 10:56 | DS ---
DISCHARGE SUMMARY: DATE OF ADMISSION: 03/08/19 DATE OF DISCHARGEE: 03/10/19 PRIMARY CARE PROVIDER: Bety Fox DO at [facility]. HOSPITAL COURSE: Ms. Tinoco is an 88-year-old female who had been in her usual state of health until approximately 1 p.m. on 03/08/19 when she was noted to have significant right-sided hemiparesis. The patient was sent to the emergency room and was determined to be having an acute stroke. She was seen by Dr. Packer, who recommended tPA. The patient received and initially had improvement in her symptoms, however, at approximately 2340 on 03/08/19, the patient had sudden worsening of her neurologic status. She also developed marked hypertension. Her mental status change was that she became acutely unresponsive. Repeat CT at that time showed an acute pontine hemorrhage. The patient had very specific guidelines to follow on her MOLST form. Ultimately, no aggressive measures were taken. At 12:17 a.m. on 03/10/19, the patient . Unfortunately, the patient's daughter was travelling from [place] and missed her mom passing away. The patient's daughter ultimately showed up and I spoke to her. TIME OF : 12:17 a.m. on 03/10/19. CAUSE OF : Hemorrhagic transformation of an ischemic CVA. [id number]/[facility] #: [id number] MTDD
== END 2019-03-10 00:15 | disposition expired | DRG 61 ==
LOC: ED 14:13 → ICU 17:29
PROVIDERS: ADMIT Internal Medicine; ATTEND Internal Medicine
DX: I63.9 Cerebral infarction, unspecified (principal); I61.3 Nontraumatic intracerebral hemorrhage in brain stem; G81.91 Hemiplegia, unspecified affecting right dominant side; I50.22 Chronic systolic (congestive) heart failure; J98.11 Atelectasis; R00.1 Bradycardia, unspecified; R47.01 Aphasia; I48.91 Unspecified atrial fibrillation; J45.909 Unspecified asthma, uncomplicated; R29.707 NIHSS score 7; R29.810 Facial weakness; F32.9 Major depressive disorder, single episode, unspecified; I27.20 Pulmonary hypertension, unspecified; K21.9 Gastro-esophageal reflux disease without esophagitis; Z66 Do not resuscitate; I11.0 Hypertensive heart disease with heart failure; F41.9 Anxiety disorder, unspecified; G62.9 Polyneuropathy, unspecified; I65.21 Occlusion and stenosis of right carotid artery; T45.615A Adverse effect of thrombolytic drugs, initial encounter; Y92.239 Unspecified place in hospital as the place of occurrence of the external cause; R47.1 Dysarthria and anarthria; Z88.0 Allergy status to penicillin; Z88.8 Allergy status to other drugs, medicaments and biological substances; Z91.018 Allergy to other foods; Z86.73 Personal history of transient ischemic attack (TIA), and cerebral infarction without residual deficits; I25.2 Old myocardial infarction; Z82.49 Family history of ischemic heart disease and other diseases of the circulatory system; Z80.0 Family history of malignant neoplasm of digestive organs
CPT/HCPCS: 36415; 70450; 70496; 70498; 71045; 80053; 80061; 81003; 81015; 83605; 84484; 85025; 85610; 85730; 86850; 86900; 86901; 87086; 87641; 93005; 99285; A9270-GY; J0360; J2270; J2997; Q9967